=== PATIENT | male | born 1980 | race Caucasian/White ===

== ENCOUNTER 2017-11-16 21:48 | Inpatient (IN) | payer BC ==
[2017-11-16] MEDS ORDERED: metroNIDAZOLE-NS PMX 500 MG in SALINE 1 100ML.BAG IVPB STA (22:05)
[2017-11-16] MEDS ORDERED: KETOROLAC 30 MG/ML 1 ML VIAL IVP STA (22:05)
[2017-11-16] MEDS ORDERED: MORPHINE SULFATE 4 MG/ML SYRINGE IV STA (22:05)
[2017-11-16] MEDS ORDERED: SODIUM CHLORIDE 0.9% 1,000 ML IV STA (22:05)
--- NOTE | 2017-11-16 22:09 | ED ---
General Adult HPI - General Chief complaint: Abdominal Pain Stated complaint: Severe abdominal pain Source: patient Mode of arrival: ambulatory Limitations: no limitations - History of Present Illness Initial comments: Dictation was produced using [employer] dictation software. please excuse any grammatical, word or spelling errors. Chief Complaint: 37-year-old male inthe past medical history presents with right lower quadrant pain 3 hours. History of Present Illness: His 37-year-old male withpast medical history presents with right lower quadrant pain that has gotten worse over the last couple hours. He has had pain for the last several weeks however it's worse today. Patient has on and off pain over the last couple weeks however today got really bad. Patient's has been complaining of chills. States his pain is located to the right lower quadrant. Patient's his pain is severe and unlike anything he is expense in the past. The ROS documented in this emergency department record has been reviewed and confirmed by me. Those systems with pertinent positive or negative responses have been documented in the HPI. All other systems are other negative and/or noncontributory. - Related Data Allergies Allergy/AdvReac Type Severity Reaction Status Date / Time No Known Allergies Allergy Verified 11/16/17 21:53 Review of Systems ROS Statement: Those systems with pertinent positive or pertinent negative responses have been documented in the HPI. ROS Other: All systems not noted in ROS Statement are negative. Past Medical History Past Medical History: No Reported History History of Any Multi-Drug Resistant Organisms: None Reported Past Surgical History: No Surgical Hx Reported Past Psychological History: No Psychological Hx Reported Smoking Status: Never smoker Past Alcohol Use History: None Reported Past Drug Use History: None Reported General Exam - General Exam Comments Initial Comments: PHYSICAL EXAM: General Impression: Alert and oriented x3, not in acute distress HEENT: Normocephalic atraumatic, extra-ocular movements intact, pupils equal and reactive to light bilaterally, mucous membranes moist. Cardiovascular: Heart regular rate and rhythm, S1&S2 audible, no murmurs, rubs or gallops Chest: Lungs clear to auscultation bilaterally, no rhonchi, no wheeze, no rales Abdomen: Right lower quadrant tenderness, positive rebound tenderness, positive Rovsing signs Musculoskeletal: Pulses present and equal in all extremities, no peripheral edema Motor: Power 5/5 bilaterally, no focal deficits noted Neurological: CN II-XII grossly intact, no focal motor or sensory deficits noted Skin: Intact with no visualized rashes Psych: Normal affect and mood Limitations: no limitations Course Vital Signs 11/16/17 11/16/17 21:51 23:12 Temperature 98.4 F Pulse Rate 111 H 120 H Respiratory 18 18 Rate Blood Pressure 91/59 123/55 O2 Sat by Pulse 98 98 Oximetry Medical Decision Making - Medical Decision Making ED course: 37-year-old male click or presentation suspicious for acute appendicitis. Vital signs upon arrival shows heart rate of 111, blood pressure 91/59, worse vital signs within normal limits. Laboratory evaluation obtained. CBC is unremarkable. Metabolic panel is negative. CT imaging shows acute appendicitis. Discussed patient case with general surgery. Patient started on antibiotics and given IV analgesics. Discussed patient case with general surgeon who is willing to accept admission. Patient disposition to general surgery. - Lab Data Result diagrams: 11/16/17 22:15 11/16/17 22:15 Lab Results 11/16/17 11/16/17 Range/Units 22:15 22:15 WBC 10.2 (3.8-10.6) k/uL RBC 5.23 (4.30-5.90) m/uL Hgb 14.7 (13.0-17.5) gm/dL Hct 44.9 (39.0-53.0) % MCV 85.8 (80.0-100.0) fL MCH 28.0 (25.0-35.0) pg MCHC 32.7 (31.0-37.0) g/dL RDW 13.4 (11.5-15.5) % Plt Count 289 (150-450) k/uL Neutrophils % 92 % Lymphocytes % 6 % Monocytes % 1 % Eosinophils % 1 % Basophils % 0 % Neutrophils # 9.5 H (1.3-7.7) k/uL Lymphocytes # 0.6 L (1.0-4.8) k/uL Monocytes # 0.1 (0-1.0) k/uL Eosinophils # 0.1 (0-0.7) k/uL Basophils # 0.0 (0-0.2) k/uL Sodium 142 (137-145) mmol/L Potassium 4.6 (3.5-5.1) mmol/L Chloride 104 (98-107) mmol/L Carbon Dioxide 27 (22-30) mmol/L Anion Gap 11 mmol/L BUN 16 (9-20) mg/dL Creatinine 0.92 (0.66-1.25) mg/dL Est GFR (CKD-EPI)AfAm >90 (>60 ml/min/1.73 sqM) Est GFR (CKD-EPI)NonAf >90 (>60 ml/min/1.73 sqM) Glucose 141 H (74-99) mg/dL Calcium 9.5 (8.4-10.2) mg/dL Total Bilirubin 0.8 (0.2-1.3) mg/dL AST 24 (17-59) U/L ALT 42 (21-72) U/L Alkaline Phosphatase 49 (38-126) U/L Total Protein 8.3 H (6.3-8.2) g/dL Albumin 4.4 (3.5-5.0) g/dL Lipase 66 (23-300) U/L Disposition Clinical Impression: Acute appendicitis Disposition: ADMITTED IP TO THIS [facility] Condition: Fair Is patient prescribed a controlled substance at d/c from ED?: No Referrals: Sherrie Brush MD [Primary Care Provider] - 1-2 days Decision Time: 23:27
[2017-11-16 22:27] LABS: Basophils % (A) 0 %; Eosinophils # (A) 0.1 k/uL (0-0.7); Eosinophils % (A) 1 %; HCT 44.9 % (39.0-53.0); HGB 14.7 gm/dL (13.0-17.5); Lymphocytes # (A) 0.6 k/uL (1.0-4.8); Lymphocytes % (A) 6 %; MCHC 32.7 g/dL (31.0-37.0); MCV 85.8 fL (80.0-100.0); Mean Platelet Volume 6.4; Monocytes # (A) 0.1 k/uL (0-1.0); Monocytes % (A) 1 %; Neutrophils # (A) 9.5 k/uL (1.3-7.7); Neutrophils % (A) 92 %; Platelet Count 289 k/uL (150-450); RBC 5.23 m/uL (4.30-5.90); RDW 13.4 % (11.5-15.5); WBC 10.2 k/uL (3.8-10.6)
[2017-11-16 22:50] LABS: ALT 42 U/L (21-72); AST 24 U/L (17-59); Albumin 4.4 g/dL (3.5-5.0); Alkaline Phosphatase 49 U/L (38-126); Anion Gap 11 mmol/L; Blood Urea Nitrogen 16 mg/dL (9-20); Calcium 9.5 mg/dL (8.4-10.2); Carbon Dioxide 27 mmol/L (22-30); Chloride 104 mmol/L (98-107); Glucose 141 mg/dL (74-99); Lipase 66 U/L (23-300); Potassium 4.6 mmol/L (3.5-5.1); Sodium 142 mmol/L (137-145); Total Bilirubin 0.8 mg/dL (0.2-1.3); Total Protein 8.3 g/dL (6.3-8.2)
--- NOTE | 2017-11-16 22:55 | CT ---
EXAMINATION TYPE: CT abdomen pelvis w con DATE OF EXAM: 11/16/2017 COMPARISON: None HISTORY: Right lower quadrant pain. CT DLP: 7.3 mGycm Automated exposure control for dose reduction was used. TECHNIQUE: Helical acquisition of images was performed from the lung bases through the pelvis. CONTRAST: Performed without Oral Contrast and with IV Contrast, patient injected with 100 mL of Isovue 370. FINDINGS: Lung bases are clear. There is no pleural effusion. Heart size is normal. Liver spleen pancreas gallbladder appear normal. Bile ducts are not dilated. Stomach appears normal. There is no adrenal mass. Kidneys show satisfactory contrast opacification. There is no hydronephrosi s. There is no retroperitoneal adenopathy. There is no mesenteric adenopathy or edema. There is thickened proximal appendix. There is fat stranding around the appendix. Appendix measures u p to almost 2 cm. There is no evidence of a bowel obstruction. Bladder distends smoothly. There is no free fluid in the pelvis. There is no inguinal hernia. There are a few inguinal lymph nodes that measure up to 12 mm. The lumbar spine is intact. There is posterior endplate spur formation at L5-S1.. There is small umbi lical hernia that contains fat. IMPRESSION: FAT STRANDING WITH THICKENED APPENDIX. This is consistent with acute appendicitis. No abscess seen.
[2017-11-16] MEDS ORDERED: NALOXONE 0.4 MG/ML 1 ML VIAL IV PRN (23:27)
[2017-11-17] MEDS ORDERED: ACETAMINOPHEN IV (For NPO) 1,000 MG in EMPTY BAG 1 BAG IVPB ONE
--- NOTE | 2017-11-17 06:02 | P.GSHP ---
History of Present Illness H&P Date: 11/17/17 37-year-old male presents to the emergency department with complaints of worsening abdominal pain. He states that most of his abdominal pain is in the right lower quadrant. He states that he has had this pain on and off for the past 2 weeks, however over the past 12 hours or so there has been a severe increase in pain. Complains of mild nausea. He denies any emesis. He feels as if he has been constipated recently. He denies any fevers, chills, chest pain or shortness of breath. He has no additional complaints at this time. CT of the abdomen and pelvis was performed in the emergency department and suspicion for acute appendicitis is noted. - Review of Systems All systems: negative Past Medical History Past Medical History: No Reported History Additional Past Medical History / Comment(s): Migraine headaches "couple of times a year" History of Any Multi-Drug Resistant Organisms: None Reported Past Surgical History: No Surgical Hx Reported Past Anesthesia/Blood Transfusion Reactions: No Reported Reaction, Family History of Problems w/ Anesthesia Additional Past Anesthesia/Blood Transfusion Reaction / Comment(s): Pt never has had anesthesia, father had trouble waking after anesthesia Past Psychological History: No Psychological Hx Reported Smoking Status: Never smoker Past Alcohol Use History: None Reported Past Drug Use History: None Reported - Past Family History Father Additional Family Medical History / Comment(s): Father states he has hx of hypotension Medications and Allergies Allergies Allergy/AdvReac Type Severity Reaction Status Date / Time No Known Allergies Allergy Verified 11/16/17 21:53 Surgical - Exam Osteopathic Statement: *. No significant issues noted on an osteopathic structural exam other than those noted in the History and Physical/Consult. Vital Signs Temp Pulse Resp BP Pulse Ox 98.4 F 111 H 18 91/59 98 11/16/17 21:51 11/16/17 21:51 11/16/17 21:51 11/16/17 21:51 11/16/17 21:51 - General well nourished, no distress - Eyes normal ocular movement - ENT no hearing loss - Neck trachea midline - Respiratory No difficulty with respiration - Abdomen Soft, tender to palpation in right lower quadrant, nondistended, no rebound, no guarding - Neurologic normal sensation - Psychiatric oriented to time, oriented to person, oriented to place, speech is normal, memory intact Results - Labs 11/16/17 22:15 11/16/17 22:15 Abnormal Lab Results - Last 24 Hours (Table) 11/16/17 11/16/17 Range/Units 22:15 22:15 Neutrophils # 9.5 H (1.3-7.7) k/uL Lymphocytes # 0.6 L (1.0-4.8) k/uL Glucose 141 H (74-99) mg/dL Total Protein 8.3 H (6.3-8.2) g/dL Diabetes panel 11/16/17 Range/Units 22:15 Sodium 142 (137-145) mmol/L Potassium 4.6 (3.5-5.1) mmol/L Chloride 104 (98-107) mmol/L Carbon Dioxide 27 (22-30) mmol/L BUN 16 (9-20) mg/dL Creatinine 0.92 (0.66-1.25) mg/dL Glucose 141 H (74-99) mg/dL Calcium 9.5 (8.4-10.2) mg/dL AST 24 (17-59) U/L ALT 42 (21-72) U/L Alkaline Phosphatase 49 (38-126) U/L Total Protein 8.3 H (6.3-8.2) g/dL Albumin 4.4 (3.5-5.0) g/dL Calcium panel 11/16/17 Range/Units 22:15 Calcium 9.5 (8.4-10.2) mg/dL Albumin 4.4 (3.5-5.0) g/dL Pituitary panel 11/16/17 Range/Units 22:15 Sodium 142 (137-145) mmol/L Potassium 4.6 (3.5-5.1) mmol/L Chloride 104 (98-107) mmol/L Carbon Dioxide 27 (22-30) mmol/L BUN 16 (9-20) mg/dL Creatinine 0.92 (0.66-1.25) mg/dL Glucose 141 H (74-99) mg/dL Calcium 9.5 (8.4-10.2) mg/dL Adrenal panel 11/16/17 Range/Units 22:15 Sodium 142 (137-145) mmol/L Potassium 4.6 (3.5-5.1) mmol/L Chloride 104 (98-107) mmol/L Carbon Dioxide 27 (22-30) mmol/L BUN 16 (9-20) mg/dL Creatinine 0.92 (0.66-1.25) mg/dL Glucose 141 H (74-99) mg/dL Calcium 9.5 (8.4-10.2) mg/dL Total Bilirubin 0.8 (0.2-1.3) mg/dL AST 24 (17-59) U/L ALT 42 (21-72) U/L Alkaline Phosphatase 49 (38-126) U/L Total Protein 8.3 H (6.3-8.2) g/dL Albumin 4.4 (3.5-5.0) g/dL - Imaging CT scan - abdomen: report reviewed, image reviewed CT scan - pelvis: report reviewed, image reviewed (Inflammatory changes and fat stranding around the appendix is noted) Assessment and Plan (1) Acute appendicitis Narrative/Plan: 37-year-old male with acute appendicitis - Begin antibiotics - Keep nothing by mouth - IV fluid resuscitation - Plan for or for laparoscopic appendectomy Current Visit: Yes Status: Acute Code(s): K35.80 - UNSPECIFIED ACUTE APPENDICITIS SNOMED Code(s): 22612191
[2017-11-17] MEDS ORDERED: ROCURONIUM BROMIDE 10 MG/ML 10 ML VIAL IV ONE (06:15)
[2017-11-17] MEDS ORDERED: SUCCINYLCHOLINE CHLORIDE 100 MG/5 ML SYR IV ONE (06:15)
[2017-11-17] MEDS ORDERED: LIDOCAINE 1% INJ 10MG/ML (20 ML MDV) ONE (06:15)
[2017-11-17] MEDS ORDERED: HYDROmorphone (PF) 1 MG/ML ONE (06:15)
[2017-11-17] MEDS ORDERED: PROPOFOL 10 MG/ML 20 ML VIAL IV ONE (06:15)
[2017-11-17] MEDS ORDERED: PHENYLEPHRINE-0.9% NACL SYG 1 MG/10 ML SYRINGE ONE (06:15)
[2017-11-17] MEDS ORDERED: GLYCOPYRROLATE 0.2 MG/ML 2 ML VIAL ONE (06:15)
[2017-11-17] MEDS ORDERED: fentaNYL (PF) 50 MCG/ML 2 ML AMP ONE (06:15)
[2017-11-17] MEDS ORDERED: NEOSTIGMINE 1 MG/ML 10 ML VIAL ONE (06:15)
[2017-11-17] MEDS ORDERED: MIDAZOLAM 2 MG/2 ML VIAL ONE (06:15)
[2017-11-17] MEDS ORDERED: IV FLUID CONTINUATION 800 ML IV ONE (06:36)
[2017-11-17] MEDS ORDERED: BUPIVACAIN-EPI 0.25%-1:200,000 30 ML VIAL SQ ONE (06:40)
[2017-11-17] MEDS ORDERED: LACTATED RINGERS 1,000 ML IV ONE (07:10)
--- NOTE | 2017-11-17 08:06 | P.OP ---
Date of Procedure: 11/17/17 Preoperative Diagnosis: Acute appendicitis Postoperative Diagnosis: Acute appendicitis, purulent Procedure(s) Performed: Laparoscopic appendectomy, converted to open appendectomy Anesthesia: KRISH Surgeon: Alfredo Caruso Estimated Blood Loss (ml): 20 Pathology: other (Appendix) Condition: stable Disposition: floor Indications for Procedure: 37-year-old male presented to the emergency department with complaints of abdominal pain that has been continuing for 2 weeks. He states that this pain worsened over the last few hours prior to his arrival. On workup he was found to have acute appendicitis. Operative Findings: Densely adhered and inflamed appendix with surrounding purulent drainage Description of Procedure: The patient was brought into the operating suite and placed in supine position on the operating table. Sedation was provided by anesthesia and the patient underwent endotracheal intubation. The patient was prepped and draped in regular sterile fashion. A super umbilical incision was made and dissection was carried to the fascia the fascia was incised and the abdomen was entered under direct visualization. Pneumoperitoneum was then achieved after 12 mm port was placed. 2 additional 5 mm ports were then placed. One was placed in the suprapubic region and one was placed in left lower quadrant. The patient was then placed in appropriate position. The appendix was visualized and was noted to be severely inflamed with some surrounding purulence. Dissection was carried to try to remove the appendix from the surrounding adhesions. The surrounding adhesions were noted to be very dense and unable to be dissected safely. At this point, it was decided to continue this procedure as an open appendectomy. A local anesthetic was infiltrated into the right lower quadrant and a small incision was made. Dissection was carried down to the fascia. The external oblique was sharply divided. The muscles were retracted apart. The peritoneum was then incised. Some purulent fluid was obtained. Suction was placed. The appendix was then identified. The cecum was carefully brought out of the incision. The mesoappendix was divided using LigaSure device. The base of the appendix was visualized and then stapled using a purple load 60 mm stapler. The staple line was examined and it was noted to be intact and hemostatic. The cecum was then reduced back into the abdominal cavity and irrigation was performed. The wound was then closed in layers. The peritoneum was closed with a running 3-0 Vicryl suture. The rest of the layers were closed with interrupted 0 PDS suture. The skin was irrigated then closed with skin stapler. Pneumoperitoneum was then reachieved. A BALJINDER drain was placed in the right side of the abdomen. This was then brought out through one of the 5 mm port sites. This was sutured in place using a silk suture. The 12 mm port site was closed using a [place] device under direct visualization and an 0 Vicryl suture. All skin incisions were then closed with skin stapler. The patient was awakened in the operating suite and taken to postanesthesia care unit in stable condition.
[2017-11-17] MEDS: fentaNYL (PF) 50 MCG/ML 2 ML AMP IVP ONE ×2 (08:46→08:52)
[2017-11-17] MEDS: PIPERACILLIN-TAZOBACTAM 3.375 GM in DEXTROSE/WATER 1 50ML.BAG IVPB SCH ×2 (09:53→15:51)
[2017-11-17] MEDS: DOCUSATE 100 MG CAP PO SCH ×2 (09:53→19:23)
[2017-11-17] MEDS: LACTATED RINGERS 1,000 ML IV SCH ×2 (09:53→15:51)
[2017-11-17] MEDS: PANTOPRAZOLE 40 MG/10 ML VIAL IV SCH (09:53)
[2017-11-17] MEDS: HEPARIN SODIUM,PORCINE 5,000 UNIT/ML 1 ML VIAL SQ SCH ×3 (09:54→15:51)
[2017-11-17] MEDS: KETOROLAC 30 MG/ML 1 ML VIAL IVP SCH ×3 (09:56→19:22)
[2017-11-17] MEDS: HYDROmorphone 1 MG/ML 1 ML SYRINGE IVP PRN ×2 (15:50→22:17)
[2017-11-18] MEDS: HEPARIN SODIUM,PORCINE 5,000 UNIT/ML 1 ML VIAL SQ SCH ×4 (00:16→23:52)
[2017-11-18] MEDS: PIPERACILLIN-TAZOBACTAM 3.375 GM in DEXTROSE/WATER 1 50ML.BAG IVPB SCH ×4 (00:16→23:50)
[2017-11-18] MEDS: LACTATED RINGERS 1,000 ML IV SCH ×4 (00:17→23:52)
[2017-11-18] MEDS: KETOROLAC 30 MG/ML 1 ML VIAL IVP SCH ×4 (02:52→20:08)
[2017-11-18] MEDS: DOCUSATE 100 MG CAP PO SCH ×2 (07:56→20:07)
[2017-11-18] MEDS: PANTOPRAZOLE 40 MG/10 ML VIAL IV SCH (07:56)
[2017-11-18 09:37] LABS: Basophils % (A) 0 %; Eosinophils # (A) 0.1 k/uL (0-0.7); Eosinophils % (A) 1 %; HGB 12.2 gm/dL (13.0-17.5); Lymphocytes # (A) 0.7 k/uL (1.0-4.8); Lymphocytes % (A) 6 %; MCH 28.7 pg (25.0-35.0); MCV 86.9 fL (80.0-100.0); Mean Platelet Volume 6.7; Monocytes # (A) 0.4 k/uL (0-1.0); Monocytes % (A) 4 %; Neutrophils # (A) 10.7 k/uL (1.3-7.7); Neutrophils % (A) 90 %; Platelet Count 208 k/uL (150-450); RBC 4.25 m/uL (4.30-5.90); RDW 13.7 % (11.5-15.5); WBC 11.9 k/uL (3.8-10.6)
[2017-11-18 09:48] LABS: Anion Gap 10 mmol/L; Blood Urea Nitrogen 14 mg/dL (9-20); Calcium 8.2 mg/dL (8.4-10.2); Carbon Dioxide 26 mmol/L (22-30); Chloride 103 mmol/L (98-107); Glucose 95 mg/dL (74-99); Potassium 4.3 mmol/L (3.5-5.1); Sodium 139 mmol/L (137-145)
[2017-11-18] MEDS ORDERED: ACETAMINOPHEN TAB 325 MG TAB PO PRN (12:23)
[2017-11-18] MEDS ORDERED: HYDROmorphone 1 MG/ML 1 ML SYRINGE IVP PRN (12:24)
--- NOTE | 2017-11-18 12:26 | P.PN ---
Subjective Progress Note Date: 11/18/17 Patient seen and examined at bedside. States he is feeling sore since surgery. States that pain that was present on presentation is no longer there. States he is having bowel function. States he has urinated. Objective - Vital Signs Vital signs: Vital Signs Temp 99 F 11/18/17 05:38 Pulse 102 H 11/18/17 05:38 Resp 16 11/18/17 05:38 BP 113/59 11/18/17 05:38 Pulse Ox 96 11/18/17 05:38 Intake & Output 11/17/17 11/18/17 11/18/17 18:59 06:59 18:59 Intake Total 1100 Output Total 20 40 Balance 1080 -40 Intake: IV 500 Oral 600 Output: Drainage 40 Anterior Abdomen 40 Estimated Blood Loss 20 Other: # Voids 3 - Constitutional General appearance: Present: cooperative, no acute distress - Respiratory Details: No difficulty with respiration - Gastrointestinal Gastrointestinal Comment(s): Soft, appropriate tenderness, nondistended, no rebound, guarding, BALJINDER drain in place with serosanguineous output - Psychiatric Psychiatric: Present: A&O x's 3 - Labs CBC & Chem 7: 11/18/17 08:33 11/18/17 08:33 Labs: Abnormal Lab Results - Last 24 Hours (Table) 11/18/17 11/18/17 Range/Units 08:33 08:33 WBC 11.9 H (3.8-10.6) k/uL RBC 4.25 L (4.30-5.90) m/uL Hgb 12.2 L (13.0-17.5) gm/dL Hct 37.0 L (39.0-53.0) % Neutrophils # 10.7 H (1.3-7.7) k/uL Lymphocytes # 0.7 L (1.0-4.8) k/uL Calcium 8.2 L (8.4-10.2) mg/dL Microbiology - Last 24 Hours (Table) 11/16/17 22:15 Blood Culture - Final Blood 11/17/17 20:11 Blood Culture Gram Stain - Preliminary Blood Blood Culture - Preliminary Assessment and Plan (1) Acute appendicitis Narrative/Plan: Postoperative day #1 status post lap converted to open appendectomy - Continue antibiotics - Increase activity - Discussed importance of deep breathing with the patient, did encourage incentive spirometry use - Advance to soft diet - Keep BALJINDER drain in place - Follow leukocytosis Current Visit: Yes Status: Acute Code(s): K35.80 - UNSPECIFIED ACUTE APPENDICITIS SNOMED Code(s): 44257366
[2017-11-18 15:08] VITALS: RESP 18
[2017-11-18] MEDS: HYDROcodone/APAP 5-325MG 1 EACH TAB PO PRN (20:07)
[2017-11-19] MEDS: KETOROLAC 30 MG/ML 1 ML VIAL IVP SCH (02:24)
[2017-11-19] MEDS: HYDROcodone/APAP 5-325MG 1 EACH TAB PO PRN ×3 (06:23→20:30)
[2017-11-19] MEDS: LACTATED RINGERS 1,000 ML IV SCH ×3 (08:10→23:23)
[2017-11-19] MEDS: PANTOPRAZOLE 40 MG/10 ML VIAL IV SCH (08:10)
[2017-11-19] MEDS: HEPARIN SODIUM,PORCINE 5,000 UNIT/ML 1 ML VIAL SQ SCH ×3 (08:10→23:22)
[2017-11-19] MEDS: PIPERACILLIN-TAZOBACTAM 3.375 GM in DEXTROSE/WATER 1 50ML.BAG IVPB SCH ×3 (08:10→23:22)
[2017-11-19] MEDS: DOCUSATE 100 MG CAP PO SCH ×2 (08:10→20:30)
[2017-11-19 11:15] LABS: Basophils % (A) 0 %; Eosinophils # (A) 0.2 k/uL (0-0.7); Eosinophils % (A) 3 %; HCT 35.4 % (39.0-53.0); HGB 11.9 gm/dL (13.0-17.5); Lymphocytes # (A) 0.8 k/uL (1.0-4.8); Lymphocytes % (A) 11 %; MCH 28.8 pg (25.0-35.0); MCHC 33.5 g/dL (31.0-37.0); MCV 85.9 fL (80.0-100.0); Mean Platelet Volume 6.9; Monocytes # (A) 0.3 k/uL (0-1.0); Monocytes % (A) 4 %; Neutrophils # (A) 5.7 k/uL (1.3-7.7); Neutrophils % (A) 80 %; Platelet Count 203 k/uL (150-450); RBC 4.12 m/uL (4.30-5.90); RDW 13.3 % (11.5-15.5); WBC 7.2 k/uL (3.8-10.6)
[2017-11-19 11:26] LABS: Anion Gap 7 mmol/L; Blood Urea Nitrogen 11 mg/dL (9-20); Calcium 8.6 mg/dL (8.4-10.2); Carbon Dioxide 30 mmol/L (22-30); Chloride 104 mmol/L (98-107); Glucose 110 mg/dL (74-99); Potassium 4.4 mmol/L (3.5-5.1); Sodium 141 mmol/L (137-145)
--- NOTE | 2017-11-19 13:27 | P.PN ---
Subjective Progress Note Date: 11/19/17 Patient seen and examined at bedside. States he feels much better. Tolerating diet. Ambulating in hallway. Denies abdominal pain. Objective - Vital Signs Vital signs: Vital Signs Temp 98.6 F 11/19/17 07:00 Pulse 94 11/19/17 07:00 Resp 18 11/19/17 07:00 BP 130/83 11/19/17 07:00 Pulse Ox 94 L 11/19/17 07:00 Intake & Output 11/18/17 11/19/17 11/19/17 18:59 06:59 18:59 Intake Total 1200 400 Output Total 40 20 Balance 1160 380 Intake: Oral 1200 400 Output: Drainage 40 20 Anterior Abdomen 40 20 Other: Voiding Method Toilet # Voids 1 1 - Constitutional General appearance: Present: cooperative, no acute distress - Respiratory Details: No difficulty with respiration - Gastrointestinal Gastrointestinal Comment(s): Soft, appropriate tenderness around incision site, nondistended, no rebound, no guarding, incision sites are clean, dry and intact and healing well - Psychiatric Psychiatric: Present: A&O x's 3 - Labs CBC & Chem 7: 11/19/17 10:35 11/19/17 10:35 Labs: Abnormal Lab Results - Last 24 Hours (Table) 11/19/17 11/19/17 Range/Units 10:35 10:35 RBC 4.12 L (4.30-5.90) m/uL Hgb 11.9 L (13.0-17.5) gm/dL Hct 35.4 L (39.0-53.0) % Lymphocytes # 0.8 L (1.0-4.8) k/uL Glucose 110 H (74-99) mg/dL Microbiology - Last 24 Hours (Table) 11/17/17 20:11 Blood Culture Gram Stain - Preliminary Blood Blood Culture - Preliminary Assessment and Plan (1) Acute appendicitis Narrative/Plan: Postoperative day #2 status post lap converted to open appendectomy - Continue antibiotics - Continue to increase activity - Discussed importance of deep breathing with the patient, did encourage incentive spirometry use - Advance to soft diet - Discontinue BALJINDER drain Current Visit: Yes Status: Acute Code(s): K35.80 - UNSPECIFIED ACUTE APPENDICITIS SNOMED Code(s): 12715799
[2017-11-20 06:35] VITALS: BP 145/79; PULSE 87; TEMP 98.8
[2017-11-20] MEDS: HEPARIN SODIUM,PORCINE 5,000 UNIT/ML 1 ML VIAL SQ SCH (07:29)
[2017-11-20] MEDS: DOCUSATE 100 MG CAP PO SCH (07:30)
[2017-11-20] MEDS: PANTOPRAZOLE 40 MG/10 ML VIAL IV SCH (07:30)
[2017-11-20] MEDS: HYDROcodone/APAP 5-325MG 1 EACH TAB PO PRN (07:31)
[2017-11-20] MEDS: PIPERACILLIN-TAZOBACTAM 3.375 GM in DEXTROSE/WATER 1 50ML.BAG IVPB SCH (07:35)
[2017-11-20] MEDS: LACTATED RINGERS 1,000 ML IV SCH (07:36)
[2017-11-20 08:59] LABS: Basophils % (A) 0 %; Eosinophils # (A) 0.2 k/uL (0-0.7); Eosinophils % (A) 3 %; HCT 38.8 % (39.0-53.0); Lymphocytes # (A) 0.9 k/uL (1.0-4.8); Lymphocytes % (A) 14 %; MCH 28.9 pg (25.0-35.0); MCHC 33.5 g/dL (31.0-37.0); MCV 86.4 fL (80.0-100.0); Mean Platelet Volume 6.9; Monocytes # (A) 0.3 k/uL (0-1.0); Monocytes % (A) 4 %; Neutrophils # (A) 4.7 k/uL (1.3-7.7); Neutrophils % (A) 76 %; Platelet Count 245 k/uL (150-450); RBC 4.49 m/uL (4.30-5.90); RDW 13.1 % (11.5-15.5); WBC 6.1 k/uL (3.8-10.6)
[2017-11-20 09:15] LABS: Anion Gap 8 mmol/L; Blood Urea Nitrogen 8 mg/dL (9-20); Carbon Dioxide 29 mmol/L (22-30); Chloride 103 mmol/L (98-107); Glucose 90 mg/dL (74-99); Potassium 4.4 mmol/L (3.5-5.1); Sodium 140 mmol/L (137-145)
[2017-11-20] MEDS ORDERED: HYDROmorphone 4 MG TABLET PO PRN (10:26)
--- NOTE | 2017-11-20 14:07 | P.DS ---
Providers Date of admission: 11/18/17 14:02 Attending physician: Alfredo Caruso DO Primary care physician: Sherrie Brush - Discharge Diagnosis(es) (1) Acute appendicitis Current Visit: Yes Status: Acute Hospital Course: The patient presented initially secondary to acute appendicitis. Due to this, the patient was taken to the operating room for an appendectomy. Open appendectomy was performed. Postop, the patient was sent to the floor and was kept on IV antibiotics. He did tolerate clear liquid diet and was advanced to a soft diet. Pain became more controlled and the patient states he began feeling much better on postoperative day #1. The patient continues to improve and is stable for discharge from a surgical standpoint. Procedures: Laparoscopic appendectomy, converted to open appendectomy Patient Condition at Discharge: Fair Plan - Discharge Summary Discharge Rx Participant: Yes New Discharge Prescriptions: New Amoxicillin/Potassium Clav [Augmentin 875-125 Tablet] 1 tab PO Q12HR #14 tab HYDROcodone/APAP 5-325MG [[place] 5-325] 1 tab PO Q4HR PRN 3 Days #15 tab PRN Reason: Pain Continue Propranolol [Inderal] 20 mg PO HS Ergocalciferol [Vitamin D2 (DRISDOL)] 50,000 unit PO Q7D Venlafaxine HCl [Effexor XR] 75 mg PO DAILY Cetirizine HCl [Zyrtec] 10 mg PO DAILY Discharge Medication List Cetirizine HCl [Zyrtec] 10 mg PO DAILY 11/17/17 [History] Ergocalciferol [Vitamin D2 (DRISDOL)] 50,000 unit PO Q7D 11/17/17 [History] Propranolol [Inderal] 20 mg PO HS 11/17/17 [History] Venlafaxine HCl [Effexor XR] 75 mg PO DAILY 11/17/17 [History] Amoxicillin/Potassium Clav [Augmentin 875-125 Tablet] 1 tab PO Q12HR #14 tab 12/28 [Rx] HYDROcodone/APAP 5-325MG [[place] 5-325] 1 tab PO Q4HR PRN 3 Days #15 tab [Rx] Follow up Appointment(s)/Referral(s): Sherrie Brush MD [Primary Care Provider] - 1-2 days Caruso,Shilpin A, DO [Doctor of Osteopathic Medicine] - 10 Days Patient Instructions/Handouts: Open Appendectomy (DC) Activity/Diet/Wound Care/Special Instructions: Low fat diet. Activity as tolerated, no heavy pushing or pulling. No lifting greater than 5 pounds. See discharge literature. No driving if on narcotics. Okay to shower, do not scrub soap on incisions. Apply dressing as necessary Discharge Disposition: HOME SELF-CARE
--- NOTE | 2017-12-05 12:39 | CDI ---
Last Revision, January 2017 Documentation Clarification Form Date: 12/05/17 From: Jacqueline Travis Angela Bustamante, Anatomy And Physiology Instructor Hours-8:30 am & 5 pm M-F Admit Date: 11/18/2017 2:02:00 PM Patient Name: Vitor Cabrera Visit Number: [id number] Discharge Date: 11/20/17 ATTENTION: The Clinical Documentation Specialists (CDI) and [facility] Coding Staff appreciate your assistance in clarifying documentation. Please respond to the clarification below the line at the bottom and electronically sign. The CDI & [facility] Coding staff will review the response and follow-up if needed. Please note: Queries are made part of the Legal Health Record. If you have any questions, please contact the author of this message via ITS. Alfredo Galloway, DO The final diagnosis of the pathology report states: acute and chronic appendicitis with periappendiceal abscess, fibrosis and fat necrosis. Documentation states: acute appendicitis is documented in the op report. Patient history/risk factors: Clinical Indicators: abdominal pain in RLQ for 2 weeks, mild nausea, recent constipation Treatment: laparoscopic appendectomy, converted to open appendectomy In your professional opinion, do you agree with the pathology report specifying acute and chronic appendicitis with periappendiceal abscess? Yes Please continue to document in your progress notes and discharge summary in order to capture severity of illness and risk of mortality. Include clinical findings that support your diagnosis. The indication to present to the operating room was for acute appendicitis, the pathology revealing acute and chronic appendicitis is completely reasonable due to the length of time the patient did have pain. CIERRA
== END 2017-11-20 13:15 | disposition home or self-care (01) | DRG 343 ==
LOC: EC 21:48 → 4MS4W 23:27 → OBSVTOIN 11-18 14:02
PROVIDERS: ADMIT Surgery; ATTEND Surgery
PROC: 0DTJ0ZZ Resection of Appendix, Open Approach (ICD-10-PCS; principal; 2017-11-18)
PROC: 0DJD4ZZ Inspection of Lower Intestinal Tract, Percutaneous Endoscopic Approach (ICD-10-PCS; 2017-11-18)
DX: K35.890 Other acute appendicitis without perforation or gangrene (principal); K36 Other appendicitis; G43.909 Migraine, unspecified, not intractable, without status migrainosus; Z53.31 Laparoscopic surgical procedure converted to open procedure; Z79.899 Other long term (current) drug therapy
CPT/HCPCS: 36415; 74177; 80048; 80053; 83605; 83690; 85025; 87040; 87077; 87186; 88304; 96361; 96365; 96367; 96375; 99285